=== PATIENT | male | born 1990 | race Caucasian/White ===

== ENCOUNTER 2021-12-23 23:21 | Emergency (ER) | payer OTHER ==
[~2021-12-23] VITALS: Ht 172.7 cm; Wt 65.8 kg
[2021-12-23 23:49] VITALS: BP 147/92
--- NOTE | 2021-12-24 00:08 | NUR ---
Called first time for X-ray , no show in lobby or outside.
--- NOTE | 2021-12-24 00:22 | NUR ---
Bhakti novak in [facility] - 12/24/21 at 0144 by MNALPHONSE PATIENT LEFT WITHOUT BEING SEEN BY DR. Saleh. NO FURTHER CARE PROVIDED FOR PATIENT.
--- NOTE | 2021-12-24 00:22 | NUR ---
Called second time- no show in lobby and outside.
--- NOTE | 2021-12-24 01:40 | NUR ---
Patient walked in ER.
--- NOTE | 2021-12-24 02:01 | NUR ---
Patient returned back from X-ray and CT scan via .
[2021-12-24 02:56] LABS: BASOPHILS # (AUTO) 0.1 K/uL (0.00-0.22); BASOPHILS % (AUTO) 1.3 % (0.0-2.0); EOSINOPHILS # (AUTO) 0.2 K/uL (0-0.4); EOSINOPHILS % (AUTO) 2.9 % (0.0-4.0); HEMATOCRIT 45.4 % (36-52); HEMOGLOBIN 15.5 g/dL (12.0-18.0); LYMPHOCYTES # (AUTO) 2.5 K/uL (2.0-11.5); LYMPHOCYTES % (AUTO) 30.3 % (20.5-51.1); MEAN CORPUSCULAR HEMOGLOBIN 29 pg (27-31); MEAN CORPUSCULAR HGB CONC 34 g/dL (33-37); MEAN CORPUSCULAR VOLUME 84.8 fL (80-94); MONOCYTES # (AUTO) 0.5 K/uL (0.8-1.0); MONOCYTES % (AUTO) 6.6 % (1.7-9.3); NEUTROPHILS # (AUTO) 4.8 K/uL (1.8-7.7); NEUTROPHILS % (AUTO) 58.9 % (42.2-75.2); PLATELET COUNT (AUTO) 214 K/uL (140-450); RED BLOOD CELL COUNT(AUTO) 5.36 MIL/uL (4.20-6.10); RED CELL DISTRIBUTION WIDTH 14.8 % (11.6-13.7); WHITE BLOOD COUNT (AUTO) 8.1 K/uL (4.8-10.8)
[2021-12-24 03:11] LABS: ANION GAP 12.6 (8-16); CARBON DIOXIDE 27.8 mmol/L (21-32); CREATININE 0.9 mg/dL (0.6-1.3); POTASSIUM 3.4 mmol/L (3.5-5.1); TOTAL BILIRUBIN 0.3 mg/dL (0.0-1.0)
--- NOTE | 2021-12-24 03:36 | NUR ---
Dr. Saleh examining patient.
[2021-12-24 03:50] VITALS: BP 144/82
--- NOTE | 2021-12-24 03:50 | NUR ---
Patient discharged with v/s stable. Written and verbal after care instructions given and explained. Patient verbalized understanding. Ambulatory with steady gait. All questions addressed prior to discharge. Advised to follow up with PMD.
== END 2021-12-24 03:50 | disposition home or self-care (01) ==
LOC: MED 23:21
DX: R07.89 Other chest pain (principal)
CPT/HCPCS: 36415; 70450; 71045; 80053; 84484; 85025; 93005; 99285